=== PATIENT | female | born 1980 | race Caucasian/White ===

== ENCOUNTER → 2020-02-20 | Outpatient (CLI) | payer OTHER ==
[~2020-02-20] MED LIST: ASPIRIN CHEWABL81 MG PO; COLACE 100MG C100 MG PO; IBUPROFEN400 MG PO; NAPROSYN EC 50500 MG GT; NORCO 7.5-3251 EACH PO
[2020-02-20 09:38] LABS: HEMOGLOBIN 11.9 gm/dl (12.3-15.3); RED BLOOD COUNT 5.04 M/UL (4.00-5.10); WHITE BLOOD COUNT 6.9 K/UL (4.5-11.0)
[2020-02-20 10:07] LABS: BUN/CREATININE RATIO 14 (0-10)
[2020-02-21 10:13] LABS: VITAMIN D, 25-HYDROXY 17.8 ng/mL (30.0-100.0)
[2020-02-21 11:13] LABS: C-PEPTIDE, SERUM 2.9 ng/mL (1.1-4.4)
== END ==
LOC: LAB 08:51
PROVIDERS: Family Medicine
DX: Z13.29 Encounter for screening for other suspected endocrine disorder (principal); Z13.220 Encounter for screening for lipoid disorders; Z13.21 Encounter for screening for nutritional disorder; Z13.1 Encounter for screening for diabetes mellitus; R35.0 Frequency of micturition; Z82.49 Family history of ischemic heart disease and other diseases of the circulatory system
CPT/HCPCS: 36415; 80053; 80061; 82043; 82607; 82746; 83036; 84439; 84443; 84681; 85027

== ENCOUNTER 2020-09-20 10:23 | Emergency (ER) | payer OTHER | END 2020-09-20 14:08 | disposition home or self-care (01) | LOC: ER1 10:23 | DX: S16.1XXA Strain of muscle, fascia and tendon at neck level, initial encounter (principal); S46.912A Strain of unspecified muscle, fascia and tendon at shoulder and upper arm level, left arm, initial encounter; R51.9 Headache, unspecified; F17.200 Nicotine dependence, unspecified, uncomplicated; Z88.8 Allergy status to other drugs, medicaments and biological substances; V49.40XA Driver injured in collision with unspecified motor vehicles in traffic accident, initial encounter; Y92.410 Unspecified street and highway as the place of occurrence of the external cause | CPT/HCPCS: 72125; 73030; 96372; 99284; J1885 ==

== ENCOUNTER 2021-08-16 14:11 | Emergency (ER) | payer OTHER ==
[~2021-08-16 14:11] MED LIST changes: +CYCLOBENZAPRINE5 MG PO; +MOBIC15 MG PO; +OMEPRAZOLE20 M1 PO
[2021-08-16] MEDS ORDERED: IBUPROFEN600 MG PO ×2 (16:08→17:07)
[2021-08-16] MEDS ORDERED: PERCOCET 5/325 T1 EA PO ×2 (16:08→17:07)
== END 2021-08-16 16:30 | disposition home or self-care (01) ==
LOC: ER1 14:11
DX: S32.2XXA Fracture of coccyx, initial encounter for closed fracture (principal); F17.210 Nicotine dependence, cigarettes, uncomplicated; W01.0XXA Fall on same level from slipping, tripping and stumbling without subsequent striking against object, initial encounter
CPT/HCPCS: 72100; 72220; 99283